=== PATIENT | male | born 1985 | race Asian ===

== ENCOUNTER 2018-07-21 19:38 | Emergency (ER) | payer OTHER ==
[~2018-07-21] VITALS: Ht 172.7 cm; Wt 92.1 kg
[2018-07-21 19:56] VITALS: Ht 172.7 cm; Wt 92.1 kg
[2018-07-21 21:23] VITALS: BP 150/96
== END 2018-07-21 21:23 | disposition home or self-care (01) ==
LOC: ED 19:38
DX: M54.2 Cervicalgia (principal); R51 Headache; Z98.890 Other specified postprocedural states; V49.49XA Driver injured in collision with other motor vehicles in traffic accident, initial encounter; Y93.I9 Activity, other involving external motion; Y92.413 State road as the place of occurrence of the external cause; Y99.8 Other external cause status